=== PATIENT | male | born 1980 | race Caucasian/White ===

== ENCOUNTER 2016-03-29 12:49 | Day surgery (SDC) | payer OTHER ==
[~2016-03-29] VITALS: Ht 170.2 cm; Wt 68.0 kg
[~2016-03-29 12:49] MED LIST: ALPR2TAB6 PO; HYDR-3797 PO; HYDR2TAB28; METO50TA3 PO; OMEP20CA11 PO; Sodium Chloride LOK Flush 10 mL Syringe IVFLUSH SCH; fentaNYL-PF 50 mCg/mL 2 mL Inj IVPUSH PRN
[2016-03-29 13:07] VITALS: BP 139/107; PULSE 95; RESP 17; O2SAT 98
[2016-03-29 15:08] VITALS: BP 127/79; PULSE 95; RESP 14; O2SAT 95
[2016-03-29 15:18] VITALS: BP 116/77; PULSE 90; RESP 16; O2SAT 93
[2016-03-29 15:23] VITALS: BP 117/69; PULSE 97; RESP 16; O2SAT 97
--- NOTE | 2016-03-29 18:00 | ENDO ---
[address] [address] ENDOSCOPY PROCEDURE PATIENT: OSEI GONZALES : 1980 MR#: [id number] ADMIT: 03/29/2016 JOB ID: [id number] PRIMARY CARE PHYSICIANS: Sheree Herrera MD PROCEDURE: Diagnostic colonoscopy. EQUIPMENT: [facility] [address] ENDOSCOPIST: Esteban Shaikh MD IS CONSULTANT: Narciso Duval MD SEDATION: Versed 11 mg and fentanyl 250 mcg. PREPARATION QUALITY: The quality of prep is good. INDICATION FOR PROCEDURE: The patient is a 36-year-old man who has passing bright red blood per rectum with clots occurring with every bowel movement for the past 2-3 months. The patient has only blood. He was referred to me and anoscopy was performed in the clinic which demonstrated no hemorrhoids or other potential cause of his bleeding. Therefore, decision was made for colonoscopy. PROCEDURAL DETAILS: The patient was brought into the endoscopy suite and placed in the left lateral decubitus position. Sedation was achieved using the above-stated medications with the addition of oxygen administered via nasal cannula. Digital rectal exam was performed and unremarkable. The colonoscope was then inserted and advanced through to the cecum under direct visualization. Quality of the prep was good. The ileocecal valve and the appendiceal orifice were both identified and photographed. I then attempted for quite some time to intubate the ileocecal valve. I was then able to be getting very briefly. I eventually called Dr. Narciso Duval in to assist. With a little bit of difficulty he was eventually able to get into the ileocecal valve and visualize the terminal ileum. Photographs were taken. It appeared unremarkable. There was no blood in the terminal ileum. There was no blood in the colon. The scope was then slowly withdrawn, examining the mucosa for any defects or polyps. No abnormalities were identified. There was a single diverticulum identified in the transverse colon. Retroflexed views were obtained in the rectum. Again there were no hemorrhoids visualized. The scope was then withdrawn. ENDOSCOPIC FINDINGS: Normal colonoscopy. Normal terminal ileum. RECOMMENDATIONS: The patient will follow up with me for discussion regarding further evaluation.
== END 2016-03-29 23:59 | disposition home or self-care (01) ==
LOC: END 12:49
PROVIDERS: ATTEND General Practice
DX: K62.5 Hemorrhage of anus and rectum (principal); I10 Essential (primary) hypertension
CPT/HCPCS: 45378; 99153; G0500; J2250; J3010; J7030